=== PATIENT | male | born 1955 | race Caucasian/White ===

== ENCOUNTER 2016-04-24 18:42 | Inpatient (IN) | payer MEDICARE, MEDICAID ==
--- NOTE | 2016-04-24 19:55 | ED Physician Chart ---
Chief Complaint/HPI - Patient Information Date Seen:: 04/24/16 Time Seen:: 19:20 Chief Complaint:: combative History of Present Illness:: THIS IS A 61 YO MALE SENT HERE FOR AN EVALUATION AND TREATMENT FOR A CHRONIC PSYCH CONDITION. HE IS NOT COOPERATIVE AND IS COMBATIVE. Allergies:: Allergies Allergy/AdvReac Type Severity Reaction Status Date / Time Penicillins Allergy Verified 04/24/16 19:02 Vitals:: Vital Signs - 8 hr 04/24/16 19:02 Temp 98.1 F HR 86 RR 21 BP 123/66 O2 Sat % 95 Historian:: EMS, Family Member, Medical Records Review:: Nurse's Note Reviewed, Transfer documents Reviewed Review of Systems - Review of Systems General/Constitutional: Fever (THE PATIENT IS TOO CONFUSE TO GIVE A REVIEW OF SYSTEMS ), No fever, No chills, No weight loss, No weakness, No diaphoresis, No edema, No loss of appetite Skin: Skin lesions (THERE ARE MULTIPLE SKIN LESIONS OVER HIS ENTIRE BODY), No rash, No bruising Head: No headache, No light-headedness Eyes: No loss of vision, No pain, No diplopia ENT: No earache, No nasal drainage, No sore throat, No tinnitus Neck: No neck pain, No swelling, No thyromegaly, No stiffness, No mass noted Cardio Vascular: No chest pain, No palpitations, No PND, No orthopnea, No edema Pulmonary: No SOB, No cough, No sputum, No wheezing GI: No nausea, No vomiting, No diarrhea, No pain, No melena, No hematochezia, No constipation, No hematemesis G/U: No dysuria, No frequency, No hematuria Musculoskeletal: No bone or joint pain, No back pain, No muscle pain Endocrine: No polyuria, No polydipsia Psychiatric: Prior psych history, No depression, No anxiety, No suicidal ideation, Other (COMBATIVE AND LOUD) Hematopoietic: No bruising, No lymphadenopathy Allergic/Immuno: No urticaria, No angioedema Neurological: No syncope, No focal symptoms, No weakness, No paresthesia, No headache, No seizure, No dizziness, No confusion, No vertigo Past Medical History - Past Medical History Obtainable: Yes (FROM RECORDS) Past Medical History: Seizures, Dementia, Other (PSYCHOSIS) Family History: None Social History: Smoker, Alcohol, No Drug Use, Care Facility Surgical History: Hernia Psychiatricy History: Schizophrenia, Bipolar, Dementia Medication: Reviewed Family Medical History - Family Member Mother History Unknown: Yes Physical Exam - Physical Examination General/Constitutional: Awake, Well-developed, well-nourished, Alert, No distress, GCS 15, Non-toxic appearing, Ambulatory Head: Atraumatic Eyes: Lids, conjuctiva normal, PERRL, EOMI Skin: Nl inspection, No rash, No skin lesions, No ecchymosis, Well hydrated, No lymphadenopathy ENMT: External ears, nose nl, Nasal exam nl, Lips, teeth, gums nl Neck: Nontender, Full ROM w/o pain, No JVD, No nuchal rigidity, No bruit, No mass, No stridor Respiratory: Nl effort/Exclusion, Clear to Auscultation, No Wheeze/Rhonchi/Rales Cardio Vascular: RRR, No murmur, gallop, rubs, NL S1 S2 GI: No tenderness/rebounding/guarding, No organomegaly, No hernia, Normal BS's, Nondistended, No mass/bruits, No McBurney tenderness : No CVA tenderness Extremities: No tenderness or effusion, Full ROM, normal strength in all extremities, No edema, Normal digits & nails Neuro/Psych: Alert/oriented, DTR's symmetric, Normal sensory exam, Normal motor strength, Judgement/insight normal (COMBATIVE AND CONFUSED), Mood normal, Normal gait, No focal deficits Misc: normal gait, Normal back, No paraspinal tenderness Labs/Radiology/EKG Results - Lab Results Results: Laboratory Tests 04/24/16 04/24/16 04/24/16 22:05 22:05 22:05 WBC 10.2 RBC 2.89 L Hgb 8.2 L Hct 24.5 L MCV 84.7 MCH 28.3 MCHC Differential 33.4 RDW 16.4 Plt Count 452 H MPV 6.8 Neutrophils % 68.9 Lymphocytes % 23.9 Monocytes % 6.5 Eosinophils % 0.4 Basophils % 0.3 PT 10.6 INR 1.07 PTT (Actin FS) 32.1 Sodium 133 L Potassium 4.2 Chloride 105 Carbon Dioxide 22.0 Anion Gap 10.2 BUN 16 Creatinine 0.6 L Est GFR ( Amer) > 60.0 Est GFR (Non-Af Amer) > 60.0 BUN/Creatinine Ratio 26.7 Glucose 100 Calcium 8.7 Total Bilirubin 0.5 AST 11 L ALT 5 L Alkaline Phosphatase 67 Troponin I Total Protein 6.0 Albumin 2.7 L Globulin 3.3 Albumin/Globulin Ratio 0.8 L Urine Source Urine Color Urine Clarity Urine pH Ur Specific [place] Urine Protein Urine Glucose (UA) Urine Ketones Urine Blood Urine Nitrate Urine Bilirubin Urine Urobilinogen Ur Leukocyte Esterase Urine RBC Urine WBC Ur Epithelial Cells Urine Bacteria 04/24/16 04/24/16 22:05 22:15 WBC RBC Hgb Hct MCV MCH MCHC Differential RDW Plt Count MPV Neutrophils % Lymphocytes % Monocytes % Eosinophils % Basophils % PT INR PTT (Actin FS) Sodium Potassium Chloride Carbon Dioxide Anion Gap BUN Creatinine Est GFR ( Amer) Est GFR (Non-Af Amer) BUN/Creatinine Ratio Glucose Calcium Total Bilirubin AST ALT Alkaline Phosphatase Troponin I 0.01 Total Protein Albumin Globulin Albumin/Globulin Ratio Urine Source CLEAN C Urine Color YELLOW Urine Clarity HAZY Urine pH 7.0 Ur Specific [place] 1.025 Urine Protein NEGATIVE Urine Glucose (UA) NEGATIVE Urine Ketones NEGATIVE Urine Blood NEGATIVE Urine Nitrate POSITIVE H Urine Bilirubin NEGATIVE Urine Urobilinogen >=8.0 H Ur Leukocyte Esterase NEGATIVE Urine RBC 0-2 H Urine WBC 2-5 H Ur Epithelial Cells OCCASIONAL Urine Bacteria MANY ED Septic Shock - . Is Septic Shock (SBP<90, OR Lactate>4 mmol\L) present?: No - <6hrs of presentation: Vital Signs: Vital Signs - 8 hr 04/24/16 19:02 Temp 98.1 F HR 86 RR 21 BP 123/66 O2 Sat % 95 Reassessment (Disposition) - Reassessment Reassessment Condition:: Improved - Patient Disposition Discharge/Transfer:: Acute Care w/in this hosp Admitted to:: Med/Surg Admitting Medical Physician:: Wiley Mai Condition at Disposition:: Improved ED Discharge Plan - Patient Disposition Instructions: Psychosis
[2016-04-24] MEDS ORDERED: Haloperidol Lactate 5 mg/mL 1mL Vial IM STA (19:56)
[2016-04-24] MEDS ORDERED: Haloperidol Lactate 5 mg/mL 1mL Vial ONE (19:57)
[2016-04-24 22:13] LABS: % BASOPHILS 0.3 % (0.0-2.0); % EOSINOPHILS 0.4 % (0.0-5.0); % LYMPHOCYTES 23.9 % (20.0-50.0); % MONOCYTES 6.5 % (2.0-10.0); % NEUTROPHILS 68.9 % (40.0-80.0); HEMATOCRIT 24.5 % (39.0-49.0); HEMOGLOBIN 8.2 gm/dL (13.2-17.3); MEAN CELL VOLUME 84.7 fl (80-99); MEAN CORPUSCULAR HEMOGLOBIN 28.3 pg (26.0-30.0); MEAN CORPUSCULAR HGB CONC 33.4 pg (28.0-36.0); MEAN PLATELET VOLUME 6.8 fl; NEUTROPHILE ABSOLUTE 7.1 Th/cmm (1.8-8.0); PLATELET COUNT 452 Th/cmm (150-400); RED BLOOD COUNT 2.89 Mil/cmm (4.30-5.70); RED CELL DISTRIBUTION WIDTH 16.4 % (11.5-20.0); WHITE BLOOD COUNT 10.2 Th/cmm (4.8-10.8)
[2016-04-24] MEDS ORDERED: Sodium Chloride 0.45% 1,000 ML IV SCH (22:19)
[2016-04-24 22:32] LABS: INR 1.07 (0.5-1.4); PROTHROMBIN TIME (TEST) 10.6 SECONDS (9.5-11.5)
[2016-04-24 22:33] LABS: ALB/GLOB RATIO 0.8 (1.0-1.8); ALKALINE PHOSPHATASE 67 U/L (34-104); ANION GAP 10.2 (7.0-16.0); BILIRUBIN,TOTAL 0.5 mg/dL (0.3-1.0); BUN - UREA NITROGEN 16 mg/dL (7-25); BUN/CREATININE RATIO 26.7; CALCIUM SERUM 8.7 mg/dL (8.6-10.3); CHLORIDE 105 mEq/L (98-107); CREATININE - SERUM 0.6 mg/dL (0.7-1.3); GLUCOSE 100 mg/dL (70-105); POTASSIUM SERUM 4.2 mEq/L (3.5-5.1); SGOT 11 U/L (13-39); SGPT/ALT 5 U/L (7-52); SODIUM SERUM 133 mEq/L (136-145)
[2016-04-24 22:56] LABS: URINE BILIRUBIN NEGATIVE (NEGATIVE); URINE BLOOD NEGATIVE (NEGATIVE); URINE COLOR YELLOW; URINE GLUCOSE (UA) NEGATIVE (NEGATIVE); URINE KETONE NEGATIVE (NEGATIVE); URINE PROTEIN NEGATIVE (NEGATIVE)
[2016-04-24 22:57] LABS: URINE UROBILINOGEN >=8.0 E.U./dL (0.2 - 1.0)
[2016-04-24 22:58] LABS: URINE BACTERIA MANY /hpf (NONE SEEN); URINE EPITHELIAL CELLS OCCASIONAL /lpf (FEW); URINE RBC 0-2 /hpf (0-5)
[2016-04-24] MEDS ORDERED: ACETAMINOPHEN 650 MG PO PRN (23:59)
[2016-04-24] MEDS ORDERED: Maalox 30 mL Cup PO PRN (23:59)
[2016-04-25] MEDS ORDERED: Albuterol Nebulizer 2.5mg/3mL IH PRN (00:04)
[2016-04-25] MEDS ORDERED: guaiFENesin 200 MG/10 ML UDC PO PRN (00:04)
[2016-04-25] MEDS ORDERED: Ipratropium Neb 0.5 mg/2.5 mL UD IH PRN (00:04)
[2016-04-25] MEDS ORDERED: Maalox 30 mL Cup PO PRN (00:04)
[2016-04-25] MEDS ORDERED: Levofloxacin 500mg/100mL 500 MG/100 ML BAG IV ONE ×2 (00:15→01:49)
[2016-04-25] MEDS: D5-0.45NS 1,000 ML IV SCH ×2 (06:50→23:37)
[2016-04-25] MEDS ORDERED: [UNRECOGNIZED DRUG - OTHER] PO SCH (09:00)
[2016-04-25] MEDS ORDERED: LACTOBACILLUS ACIDOPHILUS PO SCH (09:00)
[2016-04-25] MEDS: Lactobacillus Rhamnosus 10 Billion CFU Capsule PO SCH (09:42)
[2016-04-25] MEDS: Benztropine 1 MG TAB PO SCH ×2 (09:42→18:15)
[2016-04-25] MEDS: Lactulose 10 Gm/15 mL 30mL UDC PO SCH ×3 (09:42→21:47)
[2016-04-25] MEDS: Pantoprazole 40 mg EC Tab PO SCH ×2 (09:42→18:15)
[2016-04-25] MEDS ORDERED: Diatrizoate Meglumine/Diatri 30 mL Sol PO ONE (12:43)
--- NOTE | 2016-04-25 13:01 | Internal Medicine Prog Note ---
Internal Medicine Subjective - Subjective Service Date: 04/25/16 ([facility] [id number] [facility]) Internal Medicine Objective - Results Result Diagrams: 04/24/16 22:05 04/24/16 22:05 Recent Labs: Laboratory Last Values WBC 10.2 Th/cmm (4.8-10.8) 04/24/16 22:05 RBC 2.89 Mil/cmm (4.30-5.70) L 04/24/16 22:05 Hgb 8.2 gm/dL (13.2-17.3) L 04/24/16 22:05 Hct 24.5 % (39.0-49.0) L 04/24/16 22:05 MCV 84.7 fl (80-99) 04/24/16 22:05 MCH 28.3 pg (26.0-30.0) 04/24/16 22:05 MCHC Differential 33.4 pg (28.0-36.0) 04/24/16 22:05 RDW 16.4 % (11.5-20.0) 04/24/16 22:05 Plt Count 452 Th/cmm (150-400) H 04/24/16 22:05 MPV 6.8 fl 04/24/16 22:05 Neutrophils % 68.9 % (40.0-80.0) 04/24/16 22:05 Lymphocytes % 23.9 % (20.0-50.0) 04/24/16 22:05 Monocytes % 6.5 % (2.0-10.0) 04/24/16 22:05 Eosinophils % 0.4 % (0.0-5.0) 04/24/16 22:05 Basophils % 0.3 % (0.0-2.0) 04/24/16 22:05 PT 10.6 SECONDS (9.5-11.5) 04/24/16 22:05 INR 1.07 (0.5-1.4) 04/24/16 22:05 PTT (Actin FS) 32.1 SECONDS (26.0-38.0) 04/24/16 22:05 Sodium 133 mEq/L (136-145) L 04/24/16 22:05 Potassium 4.2 mEq/L (3.5-5.1) 04/24/16 22:05 Chloride 105 mEq/L (98-107) 04/24/16 22:05 Carbon Dioxide 22.0 mEq/L (21.0-31.0) 04/24/16 22:05 Anion Gap 10.2 (7.0-16.0) 04/24/16 22:05 BUN 16 mg/dL (7-25) 04/24/16 22:05 Creatinine 0.6 mg/dL (0.7-1.3) L 04/24/16 22:05 Est GFR ( Amer) > 60.0 ml/min 04/24/16 22:05 Est GFR (Non-Af Amer) > 60.0 ml/min 04/24/16 22:05 BUN/Creatinine Ratio 26.7 04/24/16 22:05 Glucose 100 mg/dL (70-105) 04/24/16 22:05 Calcium 8.7 mg/dL (8.6-10.3) 04/24/16 22:05 Total Bilirubin 0.5 mg/dL (0.3-1.0) 04/24/16 22:05 AST 11 U/L (13-39) L 04/24/16 22:05 ALT 5 U/L (7-52) L 04/24/16 22:05 Alkaline Phosphatase 67 U/L (34-104) 04/24/16 22:05 Troponin I 0.01 ng/mL (0.01-0.05) 04/24/16 22:05 Total Protein 6.0 gm/dL (6.0-8.3) 04/24/16 22:05 Albumin 2.7 gm/dL (4.2-5.5) L 04/24/16 22:05 Globulin 3.3 gm/dL 04/24/16 22:05 Albumin/Globulin Ratio 0.8 (1.0-1.8) L 04/24/16 22:05 TSH 2.69 uIU/ml (0.34-5.60) 04/24/16 22:05 Urine Source CLEAN C 04/24/16 22:15 Urine Color YELLOW 04/24/16 22:15 Urine Clarity HAZY (CLEAR) 04/24/16 22:15 Urine pH 7.0 04/24/16 22:15 Ur Specific [place] 1.025 (1.005-1.030) 04/24/16 22:15 Urine Protein NEGATIVE mg/dL (NEGATIVE) 04/24/16 22:15 Urine Glucose (UA) NEGATIVE mg/dL (NEGATIVE) 04/24/16 22:15 Urine Ketones NEGATIVE mg/dL (NEGATIVE) 04/24/16 22:15 Urine Blood NEGATIVE (NEGATIVE) 04/24/16 22:15 Urine Nitrate POSITIVE (NEGATIVE) H 04/24/16 22:15 Urine Bilirubin NEGATIVE (NEGATIVE) 04/24/16 22:15 Urine Urobilinogen >=8.0 E.U./dL (0.2 - 1.0) H 04/24/16 22:15 Ur Leukocyte Esterase NEGATIVE (NEGATIVE) 04/24/16 22:15 Urine RBC 0-2 /hpf (0-5) H 04/24/16 22:15 Urine WBC 2-5 /hpf (0-5) H 04/24/16 22:15 Ur Epithelial Cells OCCASIONAL /lpf (FEW) 04/24/16 22:15 Urine Bacteria MANY /hpf (NONE SEEN) 04/24/16 22:15 Blood Type O POSITIVE 04/24/16 22:05 Antibody Screen NEGATIVE 04/24/16 22:05 Crossmatch See Detail 04/24/16 22:05 - Physical Exam Vitals and I&O: Vital Signs Temp 98.6 F 04/25/16 12:00 Pulse 85 04/25/16 12:00 Resp 18 04/25/16 12:00 BP 119/67 04/25/16 12:00 Pulse Ox 97 04/25/16 12:00 Intake & Output 04/24/16 04/25/16 04/25/16 18:59 06:59 18:59 Intake Total 850 Balance 850 Intake: Intake, IV Amount 850 Active Medications: Current Medications Acetaminophen (Tylenol) 650 mg PO Q4HR PRN PRN Reason: Pain or Fever >101 Stop: 06/24/16 00:03 Al Hydrox/Mg Hydrox/Simethicone (Maalox) 30 ml PO DAILY PRN PRN Reason: GI UPSET Stop: 06/23/16 23:58 Al Hydrox/Mg Hydrox/Simethicone (Maalox) 30 ml PO Q6HR PRN PRN Reason: Constipation Stop: 06/24/16 00:03 Albuterol Sulfate (Albuterol 2.5mg/3ml Neb Ud) 2.5 mg IH Q2HR PRN PRN Reason: Shortness of Breath or Wheeze Stop: 06/24/16 00:03 Ascorbic Acid (Vitamin C) 500 mg PO DAILY OLY Stop: 06/24/16 08:59 Benztropine Mesylate (Cogentin) 1 mg PO BID OLY Stop: 06/24/16 08:59 Clonazepam (Klonopin) 0.5 mg PO DAILY OLY PRN Reason: Protocol Stop: 06/24/16 08:59 Guaifenesin (Robitussin) 200 mg PO Q4HR PRN PRN Reason: Cough or Congestion Stop: 06/24/16 00:03 Haloperidol Decanoate (Haldol Dec) 50 mg IM [id number] OLY PRN Reason: Protocol Stop: 06/23/16 23:44 Dextrose/Sodium Chloride (D5-0.45ns) 1,000 mls @ 100 mls/hr IV .Q10H [facility] Stop: 06/24/16 00:14 Last Admin: 04/25/16 06:50 Dose: 100 mls/hr Levofloxacin (Levaquin Pb) 500 mg in 100 mls @ 100 mls/hr IV Q24HR [facility] Stop: 06/24/16 20:59 Ipratropium Pablo (Atrovent Neb 0.5mg/2.5ml) 0.5 mg IH Q2HR PRN PRN Reason: Shortness of Breath or Wheeze Stop: 06/24/16 00:03 Lactobacillus Rhamnosus (Culturelle) 1 each PO DAILY [facility] Stop: 06/24/16 08:59 Lactulose (Cephulac) 20 gm PO TID [facility] Stop: 06/24/16 08:59 Lorazepam (Ativan) 1 mg PO Q4H PRN; Protocol PRN Reason: Anxiety Stop: 06/23/16 23:58 Meclizine HCl (Antivert) 25 mg PO DAILY PRN PRN Reason: Nausea / Vomiting Stop: 06/24/16 00:03 Ondansetron HCl (Zofran) 4 mg IV Q8H PRN PRN Reason: Nausea / Vomiting Stop: 06/24/16 00:03 Pantoprazole Sodium (Protonix) 40 mg PO BID [facility] Stop: 06/24/16 08:59 Zolpidem Tartrate (Ambien) 10 mg PO HS PRN PRN Reason: Insomnia Stop: 06/24/16 00:03 - Procedures Procedures: Procedures Procedure Code Date BLOOD TRANSFUSION SERVICE 28912 09/07/06 INJECT/INFUSE NEC 99.29 07/23/09 NON-INVASIVE MECHANICAL VENTILATION 93.90 12/07/04 OTHER PYLOROPLASTY 44.29 12/07/04 PACKED CELL TRANSFUSION 99.04 07/06/06 PART GASTREC W JEJ ANAST 43.7 05/23/05 POS AIRWAY PRESSURE CPAP 36443 12/07/04 REMOVAL OF STOMACH PARTIAL 28012 05/23/05 TRANSFUSION NEC 99.09 09/07/06 TRUNCAL VAGOTOMY 44.01 12/07/04 VAGOTOMY & PYLORUS REPAIR 03330 12/07/04 Internal Medicine Assmt/Plan - Assessment Assessment: ACUTE UTI SEVERE ANEMIA GERD
--- NOTE | 2016-04-25 15:27 | History & Physical ---
CHIEF COMPLAINT: ALOC. HISTORY OF PRESENT ILLNESS: This is a 61-year-old male who is a resident of [facility] who is sent here to [facility] for UTI and agitation. For this reason, the patient was admitted to the telemetry unit. PAST MEDICAL HISTORY: GERD, seizures, dementia. FAMILY HISTORY: Noncontributory. SOCIAL HISTORY: The patient is a smoker, denies any illicit drug usage. The patient resides at a board and [facility]. SURGICAL HISTORY: Hernia repair. PSYCHIATRIC HISTORY: Schizophrenia, bipolar. MEDICATIONS: Please see medication reconciliation sheet. REVIEW OF SYSTEMS: Unable to obtain, patient is confused. PHYSICAL EXAMINATION: GENERAL: The patient is well developed, well nourished, no acute distress. VITAL SIGNS: Temperature 98.6, heart rate 85, blood pressure 119/67, respirations 18, O2 97%. HEENT: Head; normocephalic, atraumatic. NECK: Supple. No mass. LUNGS: Clear bilaterally upon auscultation. CARDIOVASCULAR: Regular rate and rhythm. No murmurs, no gallops. SKIN: Intact, warm and dry to touch. ABDOMEN: Soft, nontender, nondistended. Positive bowel sounds in all 4 quadrants. LABORATORY DATA: WBC 10.2, H and H 8.2 and 24.5. Sodium 133, potassium 4.2, chloride 105, carbon dioxide 22.0, BUN 0.6, calcium 8.7. The patient had a urinalysis done and showed acute UTI. ASSESSMENT: Severe anemia, agitation and urinary tract infection. PLAN: The patient will be admitted to the med/surg unit. The patient to have a 1:1 sitter for safety. The patient to have a consultation with Dr. Harrington and Dr. Hernandez. The patient to have a CT of abdomen and pelvis. CBC and BMP will be monitored. The patient will be kept on IV fluids for hydration. We will continue to monitor the patient. JOB# [id number]
[2016-04-25] MEDS ORDERED: VTE Chemical Prophylaxis Screen/Admission MC PRN (17:24)
[2016-04-25] MEDS ORDERED: Levofloxacin 500mg/100mL Premix Bag IV SCH (21:00)
--- NOTE | 2016-04-26 02:30 | Consultation ---
INPATIENT GI CONSULT REFERRING PHYSICIAN: Dr. Mai. REASON FOR CONSULTATION: Anemia. HISTORY OF PRESENT ILLNESS: This is a 61-year-old male who was brought in for chronic psychiatric condition. The patient is uncooperative. The patient apparently was noted to be anemic. Discussing this matter with the patient, he denies having any GI bleeding. Denies abdominal pain. Denies nausea or vomiting. PAST MEDICAL HISTORY: Seizure, dementia, and psychosis. PAST SURGICAL HISTORY: Hernia repair. FAMILY HISTORY: Noncontributory. SOCIAL HISTORY: He smokes tobacco. Drinks alcohol. No IV drug usage. Resident of [facility]. ALLERGIES: PENICILLIN. CURRENT MEDICATIONS: Tylenol, Maalox, vitamin C, Cogentin, Klonopin, Robitussin, Haldol, Ativan, lactulose, Levaquin, Antivert, Zofran, Protonix, and Ambien. REVIEW OF SYSTEMS: Has underlying psychosis, otherwise denies GI bleeding. All other systems are otherwise negative. PHYSICAL EXAMINATION: VITAL SIGNS: Temperature is 98.6, breathing 18, pulse 85, blood pressure is 119/67, and satting 97%. GENERAL: In no apparent distress. EYES: Anicteric, normal conjunctivae. HEENT: Normocephalic and atraumatic. Moist mucous membranes. NECK: Soft, supple. CHEST: Clear, normal effort. CARDIOVASCULAR: Regular rate and rhythm. ABDOMEN: Soft, nontender, and nondistended. SKIN: Warm and dry. EXTREMITIES: Reveal no cyanosis. PSYCHOLOGIC: Alert. LABORATORY DATA: Show white count , hemoglobin 8.2, MCV of 84, platelets of 452,000. INR 1.07, BUN 16, and creatinine 0.6. LFTs within normal limits. IMPRESSION: This is a 61-year-old male with a normocytic anemia, cause could be from chronic disease versus gastrointestinal blood loss. The patient was offered endoscopy and colonoscopy to rule out gastrointestinal bleed. He refused to have this done. He is made aware that the failure to have proper workup could result in a missed diagnosis, missed care and treatment options resulting in cancer, resulting in early or unforeseeable disability. He understands and declined. Alternatively, we could do a CT scan to see if anything comes up and hemoglobin could be followed meantime. PLAN: 1. CT abdomen and pelvis. 2. Follow H and H and transfuse as needed. 3. The patient refused EGD and colonoscopy. Thank you for allowing me to participate. Please call me if you have any questions. JOB# [id number]
--- NOTE | 2016-04-26 03:45 | Consultation ---
IDENTIFYING INFORMATION: The patient is a 61-year-old male. REASON FOR CONSULTATION: This patient has been very agitated. The patient himself was admitted because of anemia, agitation, while he is on Haldol 50 mg decanoate every month. When I tried to talk to the patient, he looked sedated; however, when I approached him through this myself, he started yelling and screaming, telling me, "I don't care who the hell you are," and started becoming extremely agitated, uncooperative with a formal mental status exam. PAST PSYCHIATRIC HISTORY: Obviously, the patient has a history of some psychiatric condition, which I cannot really determine since he was uncooperative when I talked to him as he is on Haldol Decanoate. I was unable to get any information regarding substance abuse. MEDICAL HISTORY: The patient has severe anemia and Gastroenterology has been consulted. FAMILY AND SOCIAL HISTORY: Unable to get any information from the patient. MENTAL STATUS EXAMINATION: The patient was extremely agitated and irritable. He was unable to participate in meaningful conversation, unable to do a formal mental status exam, asked him questions over hallucination, suicidal ideation, homicidal ideation, and memory. Insight and judgment impaired. IMPRESSION: AXIS I: Psychosis, not otherwise specified. MEDICAL DIAGNOSES: Deferred to . Transfer the patient to [facility]. I will initiate Haldol 2 mg twice a day. Thank you very much for allowing me to participate in the care of this most interesting gentleman. JOB# [id number]
[2016-04-26 07:26] LABS: % BASOPHILS 0.3 % (0.0-2.0); % EOSINOPHILS 0.8 % (0.0-5.0); % LYMPHOCYTES 36.4 % (20.0-50.0); % MONOCYTES 6.7 % (2.0-10.0); % NEUTROPHILS 55.8 % (40.0-80.0); HEMOGLOBIN 9.4 gm/dL (13.2-17.3); MEAN CELL VOLUME 86.1 fl (80-99); MEAN CORPUSCULAR HEMOGLOBIN 28.8 pg (26.0-30.0); MEAN CORPUSCULAR HGB CONC 33.4 pg (28.0-36.0); MEAN PLATELET VOLUME 6.8 fl; NEUTROPHILE ABSOLUTE 4.6 Th/cmm (1.8-8.0); PLATELET COUNT 460 Th/cmm (150-400); RED BLOOD COUNT 3.27 Mil/cmm (4.30-5.70); RED CELL DISTRIBUTION WIDTH 16.4 % (11.5-20.0); WHITE BLOOD COUNT 8.4 Th/cmm (4.8-10.8)
[2016-04-26 07:46] LABS: HEMATOCRIT 28.1 % (39.0-49.0)
[2016-04-26 07:48] LABS: ANION GAP 10.5 (7.0-16.0); BUN - UREA NITROGEN 8 mg/dL (7-25); BUN/CREATININE RATIO 13.3; CALCIUM SERUM 9.9 mg/dL (8.6-10.3); CARBON DIOXIDE 26.3 mEq/L (21.0-31.0); CHLORIDE 109 mEq/L (98-107); CREATININE - SERUM 0.6 mg/dL (0.7-1.3); GLUCOSE 110 mg/dL (70-105); MAGNESIUM 2.2 mg/dL (1.9-2.7); POTASSIUM SERUM 5.8 mEq/L (3.5-5.1); SODIUM SERUM 140 mEq/L (136-145)
[2016-04-26] MEDS: Lactulose 10 Gm/15 mL 30mL UDC PO SCH ×2 (09:11→14:34)
[2016-04-26] MEDS: Pantoprazole 40 mg EC Tab PO SCH ×2 (09:12→17:06)
[2016-04-26] MEDS: Benztropine 1 MG TAB PO SCH ×2 (09:12→17:07)
[2016-04-26] MEDS: Lactobacillus Rhamnosus 10 Billion CFU Capsule PO SCH (09:12)
[2016-04-26 09:24] LABS: IRON SATURATION 38 % (15-55); TIBC (LCI) 177 ug/dL (250-450); UIBC 110 ug/dL (111-343)
--- NOTE | 2016-04-26 12:42 | Internal Medicine Prog Note ---
Internal Medicine Subjective - Subjective Service Date: 04/26/16 Patient seen and examined:: with staff Patient is:: awake Per staff patient is:: no adverse event Internal Medicine Objective - Results Result Diagrams: 04/26/16 06:30 04/26/16 06:30 Recent Labs: Laboratory Last Values WBC 8.4 Th/cmm (4.8-10.8) 04/26/16 06:30 RBC 3.27 Mil/cmm (4.30-5.70) L 04/26/16 06:30 Hgb 9.4 gm/dL (13.2-17.3) L 04/26/16 06:30 Hct 28.1 % (39.0-49.0) L D 04/26/16 06:30 MCV 86.1 fl (80-99) 04/26/16 06:30 MCH 28.8 pg (26.0-30.0) 04/26/16 06:30 MCHC Differential 33.4 pg (28.0-36.0) 04/26/16 06:30 RDW 16.4 % (11.5-20.0) 04/26/16 06:30 Plt Count 460 Th/cmm (150-400) H 04/26/16 06:30 MPV 6.8 fl 04/26/16 06:30 Neutrophils % 55.8 % (40.0-80.0) 04/26/16 06:30 Lymphocytes % 36.4 % (20.0-50.0) 04/26/16 06:30 Monocytes % 6.7 % (2.0-10.0) 04/26/16 06:30 Eosinophils % 0.8 % (0.0-5.0) 04/26/16 06:30 Basophils % 0.3 % (0.0-2.0) 04/26/16 06:30 PT 10.6 SECONDS (9.5-11.5) 04/24/16 22:05 INR 1.07 (0.5-1.4) 04/24/16 22:05 PTT (Actin FS) 32.1 SECONDS (26.0-38.0) 04/24/16 22:05 Sodium 140 mEq/L (136-145) 04/26/16 06:30 Potassium 5.8 mEq/L (3.5-5.1) H 04/26/16 06:30 Chloride 109 mEq/L (98-107) H 04/26/16 06:30 Carbon Dioxide 26.3 mEq/L (21.0-31.0) 04/26/16 06:30 Anion Gap 10.5 (7.0-16.0) 04/26/16 06:30 BUN 8 mg/dL (7-25) 04/26/16 06:30 Creatinine 0.6 mg/dL (0.7-1.3) L 04/26/16 06:30 Est GFR ( Amer) > 60.0 ml/min 04/26/16 06:30 Est GFR (Non-Af Amer) > 60.0 ml/min 04/26/16 06:30 BUN/Creatinine Ratio 13.3 04/26/16 06:30 Glucose 110 mg/dL (70-105) H 04/26/16 06:30 Calcium 9.9 mg/dL (8.6-10.3) 04/26/16 06:30 Magnesium 2.2 mg/dL (1.9-2.7) 04/26/16 06:30 Iron 67 ug/dL (38-169) 04/25/16 08:10 TIBC 177 ug/dL (250-450) L 04/25/16 08:10 Iron Saturation 38 % (15-55) 04/25/16 08:10 Unsaturated IBC 110 ug/dL (111-343) L 04/25/16 08:10 Total Bilirubin 0.5 mg/dL (0.3-1.0) 04/24/16 22:05 AST 11 U/L (13-39) L 04/24/16 22:05 ALT 5 U/L (7-52) L 04/24/16 22:05 Alkaline Phosphatase 67 U/L (34-104) 04/24/16 22:05 Ammonia 77 umol/L (16-53) H 04/26/16 06:30 Troponin I 0.01 ng/mL (0.01-0.05) 04/24/16 22:05 B-Natriuretic Peptide 191.0 pg/mL (5.0-100.0) H 04/26/16 06:30 Total Protein 6.0 gm/dL (6.0-8.3) 04/24/16 22:05 Albumin 2.7 gm/dL (4.2-5.5) L 04/24/16 22:05 Globulin 3.3 gm/dL 04/24/16 22:05 Albumin/Globulin Ratio 0.8 (1.0-1.8) L 04/24/16 22:05 TSH 2.69 uIU/ml (0.34-5.60) 04/24/16 22:05 Urine Source CLEAN C 04/24/16 22:15 Urine Color YELLOW 04/24/16 22:15 Urine Clarity HAZY (CLEAR) 04/24/16 22:15 Urine pH 7.0 04/24/16 22:15 Ur Specific [place] 1.025 (1.005-1.030) 04/24/16 22:15 Urine Protein NEGATIVE mg/dL (NEGATIVE) 04/24/16 22:15 Urine Glucose (UA) NEGATIVE mg/dL (NEGATIVE) 04/24/16 22:15 Urine Ketones NEGATIVE mg/dL (NEGATIVE) 04/24/16 22:15 Urine Blood NEGATIVE (NEGATIVE) 04/24/16 22:15 Urine Nitrate POSITIVE (NEGATIVE) H 04/24/16 22:15 Urine Bilirubin NEGATIVE (NEGATIVE) 04/24/16 22:15 Urine Urobilinogen >=8.0 E.U./dL (0.2 - 1.0) H 04/24/16 22:15 Ur Leukocyte Esterase NEGATIVE (NEGATIVE) 04/24/16 22:15 Urine RBC 0-2 /hpf (0-5) H 04/24/16 22:15 Urine WBC 2-5 /hpf (0-5) H 04/24/16 22:15 Ur Epithelial Cells OCCASIONAL /lpf (FEW) 04/24/16 22:15 Urine Bacteria MANY /hpf (NONE SEEN) 04/24/16 22:15 RPR NONREACTIVE (NONREACTIVE) 04/24/16 22:05 Blood Type O POSITIVE 04/24/16 22:05 Antibody Screen NEGATIVE 04/24/16 22:05 Crossmatch See Detail 04/24/16 22:05 - Physical Exam Vitals and I&O: Vital Signs Temp 98.6 F 04/26/16 00:00 Pulse 84 04/26/16 00:00 Resp 18 04/26/16 04:00 BP 112/69 04/26/16 00:00 Pulse Ox 96 01/10/17 00:00 Intake & Output 04/25/16 04/26/16 04/26/16 18:59 06:59 18:59 Intake Total 3100 400 Balance 3100 400 Intake: Intake, IV Amount 1000 D5-0.45NS 1,000 ml @ 100 1000 mls/hr IV .Q10H [facility] Rx#: [id number] Oral 2100 400 Other: # Voids 10 5 # Bowel Movements 0 Active Medications: Current Medications Acetaminophen (Tylenol) 650 mg PO Q4HR PRN PRN Reason: Pain or Fever >101 Stop: 06/24/16 00:03 Al Hydrox/Mg Hydrox/Simethicone (Maalox) 30 ml PO Q6HR PRN PRN Reason: Constipation Stop: 06/24/16 00:03 Albuterol Sulfate (Albuterol 2.5mg/3ml Neb Ud) 2.5 mg IH Q2HR PRN PRN Reason: Shortness of Breath or Wheeze Stop: 06/24/16 00:03 Ascorbic Acid (Vitamin C) 500 mg PO DAILY [facility] Stop: 06/24/16 08:59 Last Admin: 04/26/16 09:12 Dose: 500 mg Benztropine Mesylate (Cogentin) 1 mg PO BID OLY Stop: 06/24/16 08:59 Last Admin: 04/26/16 09:12 Dose: 1 mg Clonazepam (Klonopin) 0.5 mg PO DAILY OLY PRN Reason: Protocol Stop: 06/24/16 08:59 Last Admin: 04/26/16 09:11 Dose: 0.5 mg Guaifenesin (Robitussin) 200 mg PO Q4HR PRN PRN Reason: Cough or Congestion Stop: 06/24/16 00:03 Haloperidol (Haldol) 2 mg PO BID OLY PRN Reason: Protocol Stop: 06/25/16 08:59 Last Admin: 04/26/16 09:11 Dose: 2 mg Haloperidol Decanoate (Haldol Dec) 50 mg IM [id number] OLY PRN Reason: Protocol Stop: 06/25/16 09:59 Last Admin: 04/26/16 09:14 Dose: 50 mg Dextrose/Sodium Chloride (D5-0.45ns) 1,000 mls @ 100 mls/hr IV .Q10H O[facility] Stop: 06/24/16 00:14 Last Admin: 04/25/16 23:37 Dose: 100 mls/hr Levofloxacin (Levaquin Pb) 500 mg in 100 mls @ 100 mls/hr IV Q24HR O[facility] Stop: 06/24/16 20:59 Last Admin: 04/25/16 21:34 Dose: 100 mls/hr Ipratropium [place] (Atrovent Neb 0.5mg/2.5ml) 0.5 mg IH Q2HR PRN PRN Reason: Shortness of Breath or Wheeze Stop: 06/24/16 00:03 Lactobacillus Rhamnosus (Culturelle) 1 each PO DAILY OLY Stop: 06/24/16 08:59 Last Admin: 04/26/16 09:12 Dose: 1 each Lactulose (Cephulac) 20 gm PO TID OLY Stop: 06/24/16 08:59 Last Admin: 04/26/16 09:11 Dose: 20 gm Lorazepam (Ativan) 1 mg PO Q4H PRN; Protocol PRN Reason: Anxiety Stop: 06/23/16 23:58 Meclizine HCl (Antivert) 25 mg PO DAILY PRN PRN Reason: Nausea / Vomiting Stop: 06/24/16 00:03 Miscellaneous (Vte Chemical Prophylaxis Screen/ Admission) 1 ea [facility] PRN PRN PRN Reason: PROTOCOL Stop: 06/24/16 17:23 Ondansetron HCl (Zofran) 4 mg IV Q8H PRN PRN Reason: Nausea / Vomiting Stop: 06/24/16 00:03 Pantoprazole Sodium (Protonix) 40 mg PO BID [facility] Stop: 06/24/16 08:59 Last Admin: 04/26/16 09:12 Dose: 40 mg Zolpidem Tartrate (Ambien) 10 mg PO HS PRN PRN Reason: Insomnia Stop: 06/24/16 00:03 General: alert HEENT: NC/AT, PERRLA Neck: Supple Lungs: CTAB Cardiovascular: RRR, Normal S1, Normal S2, without murmur Abdomen: soft non-tender Neurological: no change - Procedures Procedures: Procedures Procedure Code Date BLOOD TRANSFUSION SERVICE 63537 09/07/06 INJECT/INFUSE NEC 99.29 07/23/09 NON-INVASIVE MECHANICAL VENTILATION 93.90 12/07/04 OTHER PYLOROPLASTY 44.29 12/07/04 PACKED CELL TRANSFUSION 99.04 07/06/06 PART GASTREC W JEJ ANAST 43.7 05/23/05 POS AIRWAY PRESSURE CPAP 69229 12/07/04 REMOVAL OF STOMACH PARTIAL 37410 05/23/05 TRANSFUSION NEC 99.09 09/07/06 TRUNCAL VAGOTOMY 44.01 12/07/04 VAGOTOMY & PYLORUS REPAIR 53034 12/07/04 Internal Medicine Assmt/Plan - Assessment Assessment: ACUTE UTI SEVERE ANEMIA GERD - Plan Plan: continue ivabx ivf for hydration dc planning
[2016-04-26] MEDS: D5-0.45NS 1,000 ML IV SCH ×3 (14:37→18:13)
--- NOTE | 2016-04-26 15:11 | Diagnostic Imaging Report ---
CT scan abdomen and pelvis without intravenous contrast HISTORY: Anemia Total DLP equals 412 CTDI equals 8.2 Axial sections were obtained from the xiphoid process down to the pubic symphysis. Limited sections of the lower chest demonstrate abnormal density within the left lower hemithorax. This may be associated with the pleura. Small air collections noted. Cavitation cannot be excluded. The appearance suggests an inflammatory etiology. Clinical correlation and follow-up is needed. Evidence for small right pleural effusion noted. There is evidence for small hiatal hernia. Radiodensities noted near the GE junction suggesting surgical changes. The liver exhibits a homogeneous parenchyma. No focal lesions. The spleen appears normal. No focal abnormality seen in the region of the pancreas. There is an approximate 3.3 cm round intraluminal balloon like density within the stomach. The findings should be correlated clinically and with the patient's surgical history. No focal renal lesions are seen. No hydronephrosis. Atherosclerotic calcination seen in the aorta. Assess chronic vascular calcification is noted. The exam of the pelvis demonstrates preservation of normal fat planes. No abnormal soft tissue masses or abnormal fluid collections. Mild prostatic enlargement is seen. IMPRESSION: 1. Approximately 3.3 cm round intraluminal balloon-like density within the stomach. The finding should be correlated clinically and with the patient's surgical history. 2. Extensive abnormal density within the left lower hemithorax. This may be associated with the pleura. Small air collections are seen. Findings may be associated with cavitation and an inflammatory etiology. Clinical correlation and follow-up is needed 3. Suggestion of a hiatal hernia. Area densities noted near the GE junction may be related to prior surgery. Again, correlation with surgical history is needed. 4. Findings consistent with prior cholecystectomy 5. Atherosclerotic vascular changes
[2016-04-26 15:13] LABS: AFP TUMOR MARKER 1.2 ng/mL (0.0-8.3); CARCINOEMBRYONIC ANTIGEN 1.9 ng/mL (0.0-4.7)
--- NOTE | 2016-04-26 21:34 | Admit Criteria Form ---
Admit Criteria Forms - Admit Criteria Diagnosis: URINARY COMPLICATIONS Clinical Indications for Inpatient Care (Place 'X' for any and all applicable criteria): Ongoing inpatient care may be indicated for urinary complications with ANY ONE of the following: [X ]I. Urinary tract infection requiring inpatient care as indicated by ANY ONE of the following(8)(19)(20): [ ]a) Severe symptoms (eg, high fever, severe pain) [ ]b) Vomiting or dehydration requiring ongoing inpatient care [ X]c) IV antibiotic needs that cannot be managed at lower level of care [ ]d) Hemodynamic instability [ ]e) Obstruction of collecting system by stone or tumor [ ]II. Urinary retention requiring drainage or surgery (3)(4)(5)(17)(18) [ ]III. Renal failure (Use Renal Failure Criteria for further information.) [ ]IV. Oliguria(30) [ ]V. Post obstructive diuresis requiring close monitoring of urine output and intravenous compensation for excessive fluid losses(33) Extended stay beyond goal length of stay for primary condition may be needed until ALL of the following are present(3)(4)(5)(8): [ ]a) Renal function (creatinine) at baseline, or daily decreases in creatinine consistent with renal function return [ ]b) Voiding adequately or with urinary catheter or percutaneous suprapubic tube and management regimen in place that is performable at lower level of care. [ ]c) Urine output adequate [ ]d) Fever absent or resolving [ ]e) Infection absent or treatable at next level of care The original [employer] content created by [employer] has been revised. The portions of the content which have been revised are identified through the use of italic text or in bold, and [facility] has neither reviewed nor approved the modified material. All other unmodified content is copyright [facility] Please see references footnoted in the original [facility] edition 2016
--- NOTE | 2016-04-27 02:26 | Progress Notes ---
Case was discussed with staff of the patient. The patient reported yesterday he was calmer. He took his medication. He was easier to redirect, but he got Ativan today. He is a little bit ____ Haldol Decanoate. He is sleeping better. He is, however, somewhat resistant with the staff, refusing care, but in general, he is not acting anyway dangerous, working on placement. No side effects with the medication, no sedation, no nausea, and no extrapyramidal symptoms. We will continue to work with the patient in group therapy, milieu therapy, and adjust medication. Thank you very much for allowing me to participate in the care of this most interesting gentleman. JOB# [id number]
[2016-04-27] MEDS: Pantoprazole 40 mg EC Tab PO SCH ×2 (09:35→17:39)
[2016-04-27] MEDS: Lactobacillus Rhamnosus 10 Billion CFU Capsule PO SCH (09:35)
[2016-04-27] MEDS: Lactulose 10 Gm/15 mL 30mL UDC PO SCH ×3 (09:36→20:51)
[2016-04-27] MEDS: Benztropine 1 MG TAB PO SCH ×2 (09:36→17:39)
--- NOTE | 2016-04-27 12:22 | Internal Medicine Prog Note ---
Internal Medicine Subjective - Subjective Service Date: 04/27/16 (patient was seen by gi and refused to be examined) Patient seen and examined:: with staff Patient is:: awake Per staff patient is:: no adverse event Internal Medicine Objective - Results Result Diagrams: 04/26/16 06:30 04/26/16 06:30 Recent Labs: Laboratory Last Values WBC 8.4 Th/cmm (4.8-10.8) 04/26/16 06:30 RBC 3.27 Mil/cmm (4.30-5.70) L 04/26/16 06:30 Hgb 9.4 gm/dL (13.2-17.3) L 04/26/16 06:30 Hct 28.1 % (39.0-49.0) L D 04/26/16 06:30 MCV 86.1 fl (80-99) 04/26/16 06:30 MCH 28.8 pg (26.0-30.0) 04/26/16 06:30 MCHC Differential 33.4 pg (28.0-36.0) 04/26/16 06:30 RDW 16.4 % (11.5-20.0) 04/26/16 06:30 Plt Count 460 Th/cmm (150-400) H 04/26/16 06:30 MPV 6.8 fl 04/26/16 06:30 Neutrophils % 55.8 % (40.0-80.0) 04/26/16 06:30 Lymphocytes % 36.4 % (20.0-50.0) 04/26/16 06:30 Monocytes % 6.7 % (2.0-10.0) 04/26/16 06:30 Eosinophils % 0.8 % (0.0-5.0) 04/26/16 06:30 Basophils % 0.3 % (0.0-2.0) 04/26/16 06:30 PT 10.6 SECONDS (9.5-11.5) 04/24/16 22:05 INR 1.07 (0.5-1.4) 04/24/16 22:05 PTT (Actin FS) 32.1 SECONDS (26.0-38.0) 04/24/16 22:05 Sodium 140 mEq/L (136-145) 04/26/16 06:30 Potassium 5.8 mEq/L (3.5-5.1) H 04/26/16 06:30 Chloride 109 mEq/L (98-107) H 04/26/16 06:30 Carbon Dioxide 26.3 mEq/L (21.0-31.0) 04/26/16 06:30 Anion Gap 10.5 (7.0-16.0) 04/26/16 06:30 BUN 8 mg/dL (7-25) 04/26/16 06:30 Creatinine 0.6 mg/dL (0.7-1.3) L 04/26/16 06:30 Est GFR ( Amer) > 60.0 ml/min 04/26/16 06:30 Est GFR (Non-Af Amer) > 60.0 ml/min 04/26/16 06:30 BUN/Creatinine Ratio 13.3 04/26/16 06:30 Glucose 110 mg/dL (70-105) H 04/26/16 06:30 Calcium 9.9 mg/dL (8.6-10.3) 04/26/16 06:30 Magnesium 2.2 mg/dL (1.9-2.7) 04/26/16 06:30 Iron 67 ug/dL (38-169) 04/25/16 08:10 TIBC 177 ug/dL (250-450) L 04/25/16 08:10 Iron Saturation 38 % (15-55) 04/25/16 08:10 Unsaturated IBC 110 ug/dL (111-343) L 04/25/16 08:10 Total Bilirubin 0.5 mg/dL (0.3-1.0) 04/24/16 22:05 AST 11 U/L (13-39) L 04/24/16 22:05 ALT 5 U/L (7-52) L 04/24/16 22:05 Alkaline Phosphatase 67 U/L (34-104) 04/24/16 22:05 Ammonia 77 umol/L (16-53) H 04/26/16 06:30 Troponin I 0.01 ng/mL (0.01-0.05) 04/24/16 22:05 B-Natriuretic Peptide 191.0 pg/mL (5.0-100.0) H 04/26/16 06:30 Total Protein 6.0 gm/dL (6.0-8.3) 04/24/16 22:05 Albumin 2.7 gm/dL (4.2-5.5) L 04/24/16 22:05 Globulin 3.3 gm/dL 04/24/16 22:05 Albumin/Globulin Ratio 0.8 (1.0-1.8) L 04/24/16 22:05 Tumor Marker AFP 1.2 ng/mL (0.0-8.3) 04/25/16 08:10 Carcinoembryonic Ag 1.9 ng/mL (0.0-4.7) 04/25/16 08:10 Vitamin B12 393 pg/mL (211-946) 04/26/16 06:30 Folic Acid 10.0 ng/mL (>3.0) 04/26/16 06:30 TSH 2.69 uIU/ml (0.34-5.60) 04/24/16 22:05 Urine Source CLEAN C 04/24/16 22:15 Urine Color YELLOW 04/24/16 22:15 Urine Clarity HAZY (CLEAR) 04/24/16 22:15 Urine pH 7.0 04/24/16 22:15 Ur Specific [place] 1.025 (1.005-1.030) 04/24/16 22:15 Urine Protein NEGATIVE mg/dL (NEGATIVE) 04/24/16 22:15 Urine Glucose (UA) NEGATIVE mg/dL (NEGATIVE) 04/24/16 22:15 Urine Ketones NEGATIVE mg/dL (NEGATIVE) 04/24/16 22:15 Urine Blood NEGATIVE (NEGATIVE) 04/24/16 22:15 Urine Nitrate POSITIVE (NEGATIVE) H 04/24/16 22:15 Urine Bilirubin NEGATIVE (NEGATIVE) 04/24/16 22:15 Urine Urobilinogen >=8.0 E.U./dL (0.2 - 1.0) H 04/24/16 22:15 Ur Leukocyte Esterase NEGATIVE (NEGATIVE) 04/24/16 22:15 Urine RBC 0-2 /hpf (0-5) H 04/24/16 22:15 Urine WBC 2-5 /hpf (0-5) H 04/24/16 22:15 Ur Epithelial Cells OCCASIONAL /lpf (FEW) 04/24/16 22:15 Urine Bacteria MANY /hpf (NONE SEEN) 04/24/16 22:15 RPR NONREACTIVE (NONREACTIVE) 04/24/16 22:05 Blood Type O POSITIVE 04/24/16 22:05 Antibody Screen NEGATIVE 04/24/16 22:05 Crossmatch See Detail 04/24/16 22:05 - Physical Exam Vitals and I&O: Vital Signs Temp 98.6 F 04/27/16 00:00 Pulse 93 04/27/16 00:00 Resp 18 04/27/16 00:00 BP 118/85 04/27/16 00:00 Pulse Ox 96 04/27/16 00:00 Intake & Output 04/26/16 04/27/16 04/27/16 18:59 06:59 18:59 Intake Total 1360 Balance 1360 Intake: Intake, IV Amount 1360 D5-0.45NS 1,000 ml @ 100 1360 mls/hr IV .Q10H [facility] Rx#: [id number] Active Medications: Current Medications Acetaminophen (Tylenol) 650 mg PO Q4HR PRN PRN Reason: Pain or Fever >101 Stop: 06/24/16 00:03 Al Hydrox/Mg Hydrox/Simethicone (Maalox) 30 ml PO Q6HR PRN PRN Reason: Constipation Stop: 06/24/16 00:03 Albuterol Sulfate (Albuterol 2.5mg/3ml Neb Ud) 2.5 mg IH Q2HR PRN PRN Reason: Shortness of Breath or Wheeze Stop: 06/24/16 00:03 Ascorbic Acid (Vitamin C) 500 mg PO DAILY [facility] Stop: 06/24/16 08:59 Last Admin: 04/27/16 09:35 Dose: 500 mg Benztropine Mesylate (Cogentin) 1 mg PO BID [facility] Stop: 06/24/16 08:59 Last Admin: 04/27/16 09:36 Dose: 1 mg Clonazepam (Klonopin) 0.5 mg PO DAILY [facility] PRN Reason: Protocol Stop: 06/24/16 08:59 Last Admin: 04/27/16 09:35 Dose: 0.5 mg Guaifenesin (Robitussin) 200 mg PO Q4HR PRN PRN Reason: Cough or Congestion Stop: 06/24/16 00:03 Haloperidol (Haldol) 2 mg PO BID [facility] PRN Reason: Protocol Stop: 06/25/16 08:59 Last Admin: 04/27/16 09:35 Dose: 2 mg Haloperidol Decanoate (Haldol Dec) 50 mg IM [id number] OLY PRN Reason: Protocol Stop: 06/25/16 09:59 Last Admin: 04/26/16 09:14 Dose: 50 mg Dextrose/Sodium Chloride (D5-0.45ns) 1,000 mls @ 100 mls/hr IV .Q10H [facility] Stop: 06/24/16 00:14 Last Admin: 04/26/16 18:13 Dose: 100 mls/hr Levofloxacin (Levaquin Pb) 500 mg in 100 mls @ 100 mls/hr IV Q24HR [facility] Stop: 06/24/16 20:59 Last Admin: 04/25/16 21:34 Dose: 100 mls/hr Ipratropium [place] (Atrovent Neb 0.5mg/2.5ml) 0.5 mg IH Q2HR PRN PRN Reason: Shortness of Breath or Wheeze Stop: 06/24/16 00:03 Lactobacillus Rhamnosus (Culturelle) 1 each PO DAILY O[facility] Stop: 06/24/16 08:59 Last Admin: 04/27/16 09:35 Dose: 1 each Lactulose (Cephulac) 20 gm PO TID OLY Stop: 06/24/16 08:59 Last Admin: 04/27/16 09:36 Dose: 20 gm Lorazepam (Ativan) 1 mg PO Q4H PRN; Protocol PRN Reason: Anxiety Stop: 06/23/16 23:58 Meclizine HCl (Antivert) 25 mg PO DAILY PRN PRN Reason: Nausea / Vomiting Stop: 06/24/16 00:03 Miscellaneous (Vte Chemical Prophylaxis Screen/ Admission) 1 ea [facility] PRN PRN PRN Reason: PROTOCOL Stop: 06/24/16 17:23 Mupirocin (Bactroban Oint) 1 appl TP BID [facility] Stop: 06/26/16 08:59 Ondansetron HCl (Zofran) 4 mg IV Q8H PRN PRN Reason: Nausea / Vomiting Stop: 06/24/16 00:03 Pantoprazole Sodium (Protonix) 40 mg PO BID [facility] Stop: 06/24/16 08:59 Last Admin: 04/27/16 09:35 Dose: 40 mg Zolpidem Tartrate (Ambien) 10 mg PO HS PRN PRN Reason: Insomnia Stop: 06/24/16 00:03 General: alert Neck: Supple Lungs: CTAB Cardiovascular: RRR, Normal S1, Normal S2, without murmur Abdomen: soft non-tender, non-distended, positive bowel sound Neurological: no change - Procedures Procedures: Procedures Procedure Code Date BLOOD TRANSFUSION SERVICE 81322 09/07/06 INJECT/INFUSE NEC 99.29 07/23/09 NON-INVASIVE MECHANICAL VENTILATION 93.90 12/07/04 OTHER PYLOROPLASTY 44.29 12/07/04 PACKED CELL TRANSFUSION 99.04 07/06/06 PART GASTREC W JEJ ANAST 43.7 05/23/05 POS AIRWAY PRESSURE CPAP 25074 12/07/04 REMOVAL OF STOMACH PARTIAL 17407 05/23/05 TRANSFUSION NEC 99.09 09/07/06 TRUNCAL VAGOTOMY 44.01 12/07/04 VAGOTOMY & PYLORUS REPAIR 96509 12/07/04 Internal Medicine Assmt/Plan - Assessment Assessment: ACUTE UTI SEVERE ANEMIA GERD - Plan Plan: continue ivabx monitor h/h ivf for hydration dc planning
[2016-04-27] MEDS: D5-0.45NS 1,000 ML IV SCH (14:24)
--- NOTE | 2016-04-28 00:58 | Progress Notes ---
Case was discussed with staff of the patient, reviewed records. The patient has been irritable. He refused to eat sometimes. He did get the Haldol Decanoate injection yesterday with no side effects, no sedation, no nausea, and no extrapyramidal symptoms. However, he seemed to be refusing the oral medication. We are working on placement for this patient as well and so far, no side effects, no sedation, no nausea, and no extrapyramidal symptoms. He is still not willing to talk or participate in a meaningful conversation and we will continue to work with the patient in group therapy, milieu therapy, and adjust the medication as needed. JOB# [id number]
[2016-04-28] MEDS: D5-0.45NS 1,000 ML IV SCH (05:19)
[2016-04-28 07:26] LABS: % BASOPHILS 0.5 % (0.0-2.0); % EOSINOPHILS 0.6 % (0.0-5.0); % LYMPHOCYTES 32.7 % (20.0-50.0); % MONOCYTES 6.6 % (2.0-10.0); % NEUTROPHILS 59.6 % (40.0-80.0); HEMATOCRIT 25.5 % (39.0-49.0); HEMOGLOBIN 8.6 gm/dL (13.2-17.3); MEAN CELL VOLUME 85.9 fl (80-99); MEAN CORPUSCULAR HGB CONC 33.8 pg (28.0-36.0); MEAN PLATELET VOLUME 7.1 fl; PLATELET COUNT 447 Th/cmm (150-400); RED BLOOD COUNT 2.96 Mil/cmm (4.30-5.70); RED CELL DISTRIBUTION WIDTH 17.5 % (11.5-20.0); WHITE BLOOD COUNT 8.4 Th/cmm (4.8-10.8)
[2016-04-28 07:37] LABS: ANION GAP 7.3 (7.0-16.0); BUN - UREA NITROGEN 13 mg/dL (7-25); BUN/CREATININE RATIO 21.7; CALCIUM SERUM 8.8 mg/dL (8.6-10.3); CARBON DIOXIDE 24.6 mEq/L (21.0-31.0); CHLORIDE 106 mEq/L (98-107); CREATININE - SERUM 0.6 mg/dL (0.7-1.3); GLUCOSE 113 mg/dL (70-105); POTASSIUM SERUM 3.9 mEq/L (3.5-5.1); SODIUM SERUM 134 mEq/L (136-145)
[2016-04-28] MEDS: Lactulose 10 Gm/15 mL 30mL UDC PO SCH ×3 (09:59→14:23)
[2016-04-28] MEDS: Benztropine 1 MG TAB PO SCH ×2 (10:00→12:41)
[2016-04-28] MEDS: Lactobacillus Rhamnosus 10 Billion CFU Capsule PO SCH ×2 (10:00→12:43)
[2016-04-28] MEDS: Pantoprazole 40 mg EC Tab PO SCH (10:00)
--- NOTE | 2016-04-28 14:25 | Internal Medicine Prog Note ---
Internal Medicine Subjective - Subjective Service Date: 04/28/16 Patient seen and examined:: with staff Patient is:: awake Per staff patient is:: no adverse event Internal Medicine Objective - Results Result Diagrams: 04/28/16 06:33 04/28/16 06:33 Recent Labs: Laboratory Last Values WBC 8.4 Th/cmm (4.8-10.8) 04/28/16 06:33 RBC 2.96 Mil/cmm (4.30-5.70) L 04/28/16 06:33 Hgb 8.6 gm/dL (13.2-17.3) L 04/28/16 06:33 Hct 25.5 % (39.0-49.0) L 04/28/16 06:33 MCV 85.9 fl (80-99) 04/28/16 06:33 MCH 29.0 pg (26.0-30.0) 04/28/16 06:33 MCHC Differential 33.8 pg (28.0-36.0) 04/28/16 06:33 RDW 17.5 % (11.5-20.0) 04/28/16 06:33 Plt Count 447 Th/cmm (150-400) H 04/28/16 06:33 MPV 7.1 fl 04/28/16 06:33 Neutrophils % 59.6 % (40.0-80.0) 04/28/16 06:33 Lymphocytes % 32.7 % (20.0-50.0) 04/28/16 06:33 Monocytes % 6.6 % (2.0-10.0) 04/28/16 06:33 Eosinophils % 0.6 % (0.0-5.0) 04/28/16 06:33 Basophils % 0.5 % (0.0-2.0) 04/28/16 06:33 PT 10.6 SECONDS (9.5-11.5) 04/24/16 22:05 INR 1.07 (0.5-1.4) 04/24/16 22:05 PTT (Actin FS) 32.1 SECONDS (26.0-38.0) 04/24/16 22:05 Sodium 134 mEq/L (136-145) L 04/28/16 06:33 Potassium 3.9 mEq/L (3.5-5.1) 04/28/16 06:33 Chloride 106 mEq/L (98-107) 04/28/16 06:33 Carbon Dioxide 24.6 mEq/L (21.0-31.0) 04/28/16 06:33 Anion Gap 7.3 (7.0-16.0) 04/28/16 06:33 BUN 13 mg/dL (7-25) 04/28/16 06:33 Creatinine 0.6 mg/dL (0.7-1.3) L 04/28/16 06:33 Est GFR ( Amer) > 60.0 ml/min 04/28/16 06:33 Est GFR (Non-Af Amer) > 60.0 ml/min 04/28/16 06:33 BUN/Creatinine Ratio 21.7 04/28/16 06:33 Glucose 113 mg/dL (70-105) H 04/28/16 06:33 Calcium 8.8 mg/dL (8.6-10.3) 04/28/16 06:33 Magnesium 2.2 mg/dL (1.9-2.7) 04/26/16 06:30 Iron 67 ug/dL (38-169) 04/25/16 08:10 TIBC 177 ug/dL (250-450) L 04/25/16 08:10 Iron Saturation 38 % (15-55) 04/25/16 08:10 Unsaturated IBC 110 ug/dL (111-343) L 04/25/16 08:10 Total Bilirubin 0.5 mg/dL (0.3-1.0) 04/24/16 22:05 AST 11 U/L (13-39) L 04/24/16 22:05 ALT 5 U/L (7-52) L 04/24/16 22:05 Alkaline Phosphatase 67 U/L (34-104) 04/24/16 22:05 Ammonia 77 umol/L (16-53) H 04/26/16 06:30 Troponin I 0.01 ng/mL (0.01-0.05) 04/24/16 22:05 B-Natriuretic Peptide 191.0 pg/mL (5.0-100.0) H 04/26/16 06:30 Total Protein 6.0 gm/dL (6.0-8.3) 04/24/16 22:05 Albumin 2.7 gm/dL (4.2-5.5) L 04/24/16 22:05 Globulin 3.3 gm/dL 04/24/16 22:05 Albumin/Globulin Ratio 0.8 (1.0-1.8) L 04/24/16 22:05 Tumor Marker AFP 1.2 ng/mL (0.0-8.3) 04/25/16 08:10 Carcinoembryonic Ag 1.9 ng/mL (0.0-4.7) 04/25/16 08:10 Vitamin B12 393 pg/mL (211-946) 04/26/16 06:30 Folic Acid 10.0 ng/mL (>3.0) 04/26/16 06:30 TSH 2.69 uIU/ml (0.34-5.60) 04/24/16 22:05 Urine Source CLEAN C 04/24/16 22:15 Urine Color YELLOW 04/24/16 22:15 Urine Clarity HAZY (CLEAR) 04/24/16 22:15 Urine pH 7.0 04/24/16 22:15 Ur Specific [place] 1.025 (1.005-1.030) 04/24/16 22:15 Urine Protein NEGATIVE mg/dL (NEGATIVE) 04/24/16 22:15 Urine Glucose (UA) NEGATIVE mg/dL (NEGATIVE) 04/24/16 22:15 Urine Ketones NEGATIVE mg/dL (NEGATIVE) 04/24/16 22:15 Urine Blood NEGATIVE (NEGATIVE) 04/24/16 22:15 Urine Nitrate POSITIVE (NEGATIVE) H 04/24/16 22:15 Urine Bilirubin NEGATIVE (NEGATIVE) 04/24/16 22:15 Urine Urobilinogen >=8.0 E.U./dL (0.2 - 1.0) H 04/24/16 22:15 Ur Leukocyte Esterase NEGATIVE (NEGATIVE) 04/24/16 22:15 Urine RBC 0-2 /hpf (0-5) H 04/24/16 22:15 Urine WBC 2-5 /hpf (0-5) H 04/24/16 22:15 Ur Epithelial Cells OCCASIONAL /lpf (FEW) 04/24/16 22:15 Urine Bacteria MANY /hpf (NONE SEEN) 04/24/16 22:15 RPR NONREACTIVE (NONREACTIVE) 04/24/16 22:05 Blood Type O POSITIVE 04/24/16 22:05 Antibody Screen NEGATIVE 04/24/16 22:05 Crossmatch See Detail 04/24/16 22:05 - Physical Exam Vitals and I&O: Vital Signs Temp 97.2 F 04/28/16 00:00 Pulse 79 04/28/16 07:14 Resp 18 04/28/16 08:00 BP 96/64 04/28/16 00:00 Pulse Ox 95 04/28/16 07:14 Intake & Output 04/27/16 04/28/16 04/28/16 18:59 06:59 18:59 Intake Total 1250 1120 Balance 1250 1120 Intake: Intake, IV Amount 1000 D5-0.45NS 1,000 ml @ 100 1000 mls/hr IV .Q10H OLY Rx#: [id number] Oral 1250 120 Other: # Voids 4 3 # Bowel Movements 1 1 Stool Characteristics Soft Soft Formed Formed Active Medications: Current Medications Acetaminophen (Tylenol) 650 mg PO Q4HR PRN PRN Reason: Pain or Fever >101 Stop: 06/24/16 00:03 Al Hydrox/Mg Hydrox/Simethicone (Maalox) 30 ml PO Q6HR PRN PRN Reason: Constipation Stop: 06/24/16 00:03 Albuterol Sulfate (Albuterol 2.5mg/3ml Neb Ud) 2.5 mg IH Q2HR PRN PRN Reason: Shortness of Breath or Wheeze Stop: 06/24/16 00:03 Ascorbic Acid (Vitamin C) 500 mg PO DAILY [facility] Stop: 06/24/16 08:59 Last Admin: 04/28/16 12:41 Dose: 500 mg Benztropine Mesylate (Cogentin) 1 mg PO BID [facility] Stop: 06/24/16 08:59 Last Admin: 04/28/16 12:41 Dose: 1 mg Clonazepam (Klonopin) 0.5 mg PO DAILY [facility] PRN Reason: Protocol Stop: 06/24/16 08:59 Last Admin: 04/28/16 12:41 Dose: 0.5 mg Guaifenesin (Robitussin) 200 mg PO Q4HR PRN PRN Reason: Cough or Congestion Stop: 06/24/16 00:03 Haloperidol (Haldol) 2 mg PO BID [facility] PRN Reason: Protocol Stop: 06/25/16 08:59 Last Admin: 04/28/16 12:40 Dose: 2 mg Haloperidol Decanoate (Haldol Dec) 50 mg IM [id number] OLY PRN Reason: Protocol Stop: 06/25/16 09:59 Last Admin: 04/26/16 09:14 Dose: 50 mg Dextrose/Sodium Chloride (D5-0.45ns) 1,000 mls @ 100 mls/hr IV .Q10H OLY Stop: 06/24/16 00:14 Last Admin: 04/28/16 05:19 Dose: 100 mls/hr Levofloxacin (Levaquin Pb) 500 mg in 100 mls @ 100 mls/hr IV Q24HR [facility] Stop: 06/24/16 20:59 Last Admin: 04/25/16 21:34 Dose: 100 mls/hr Ipratropium [place] (Atrovent Neb 0.5mg/2.5ml) 0.5 mg IH Q2HR PRN PRN Reason: Shortness of Breath or Wheeze Stop: 06/24/16 00:03 Lactobacillus Rhamnosus (Culturelle) 1 each PO DAILY [facility] Stop: 06/24/16 08:59 Last Admin: 04/28/16 12:43 Dose: 1 each Lactulose (Cephulac) 20 gm PO TID [facility] Stop: 06/24/16 08:59 Last Admin: 04/28/16 14:23 Dose: Not Given Lorazepam (Ativan) 1 mg PO Q4H PRN; Protocol PRN Reason: Anxiety Stop: 06/23/16 23:58 Meclizine HCl (Antivert) 25 mg PO DAILY PRN PRN Reason: Nausea / Vomiting Stop: 06/24/16 00:03 Miscellaneous (Vte Chemical Prophylaxis Screen/ Admission) 1 ea [facility] PRN PRN PRN Reason: PROTOCOL Stop: 06/24/16 17:23 Mupirocin (Bactroban Oint) 1 appl TP BID [facility] Stop: 06/26/16 08:59 Last Admin: 04/28/16 09:58 Dose: 1 appl Ondansetron HCl (Zofran) 4 mg IV Q8H PRN PRN Reason: Nausea / Vomiting Stop: 06/24/16 00:03 Pantoprazole Sodium (Protonix) 40 mg PO BID [facility] Stop: 06/24/16 08:59 Last Admin: 04/28/16 10:00 Dose: Not Given Zolpidem Tartrate (Ambien) 10 mg PO HS PRN PRN Reason: Insomnia Stop: 06/24/16 00:03 General: alert HEENT: NC/AT, PERRLA Neck: Supple Lungs: CTAB Cardiovascular: RRR, Normal S1, Normal S2, without murmur Abdomen: soft non-tender Neurological: no change - Procedures Procedures: Procedures Procedure Code Date BLOOD TRANSFUSION SERVICE 82485 09/07/06 INJECT/INFUSE NEC 99.29 07/23/09 NON-INVASIVE MECHANICAL VENTILATION 93.90 12/07/04 OTHER PYLOROPLASTY 44.29 12/07/04 PACKED CELL TRANSFUSION 99.04 07/06/06 PART GASTREC W JEJ ANAST 43.7 05/23/05 POS AIRWAY PRESSURE CPAP 58000 12/07/04 REMOVAL OF STOMACH PARTIAL 23731 05/23/05 TRANSFUSION NEC 99.09 09/07/06 TRUNCAL VAGOTOMY 44.01 12/07/04 VAGOTOMY & PYLORUS REPAIR 49266 12/07/04 Internal Medicine Assmt/Plan - Assessment Assessment: ACUTE UTI SEVERE ANEMIA GERD - Plan Plan: continue ivabx ivf for hydration dc planning
--- NOTE | 2016-04-29 08:08 | Progress Notes ---
Case discussed with staff of the patient, reviewed records. The patient as reported by staff at times refusing care. He gets sometimes irritable if he is approached with care; however, apparently, I was told that they have a intermediate he is going to and he is on Haldol Decanoate, which may like he is getting his antipsychotic medication and he could follow up with the psychiatrist at the intermediate and so far, no side effects, no sedation, no nausea, no extrapyramidal symptoms. Thank you very much for allowing me to participate in the care of this most interesting gentleman. JOB# [id number]
--- NOTE | 2016-06-01 01:02 | Discharge Summary ---
FINAL DIAGNOSES: 1. Severe anemia. 2. Agitation. 3. Urinary tract infection. HISTORY OF PRESENT ILLNESS: A 61-year-old male, resident of [place], who was sent to [facility] for UTI and agitation. PHYSICAL EXAMINATION: GENERAL: The patient is well developed, well nourished, in no acute distress. VITAL SIGNS: Stable. HEAD: Normocephalic, atraumatic. NECK: Supple. No mass. LUNGS: Clear. HEART: Regular rate and rhythm. ABDOMEN: Soft, nontender and nondistended. HOSPITAL COURSE: During the hospital stay, the patient was admitted to Med/Surg Unit. The patient had a 1:[address] Jordan and Dr. Hernandez were on the case as well. The patient had a CT of the abdomen and pelvis and the impression is approximately 2.3 cm round intraluminal balloon-like density within the stomach, findings consistent with prior cholecystectomy. The patient was kept on IV antibiotics and IV fluids for hydration as well. The patient later then stabilized and was stable for discharge. CONDITION UPON DISCHARGE: Fair. DISPOSITION: The patient is going to [place]. JOB# [id number]
== END 2016-04-28 19:30 | DRG 811 ==
LOC: ER 18:42 → MSI 23:25
PROVIDERS: ADMIT Internal Medicine; ATTEND Internal Medicine
DX: D64.9 Anemia, unspecified (principal); E43 Unspecified severe protein-calorie malnutrition; F03.90 Unspecified dementia, unspecified severity, without behavioral disturbance, psychotic disturbance, mood disturbance, and anxiety; N39.0 Urinary tract infection, site not specified; Z68.1 Body mass index [BMI] 19.9 or less, adult; K21.9 Gastro-esophageal reflux disease without esophagitis; G40.909 Epilepsy, unspecified, not intractable, without status epilepticus; F17.210 Nicotine dependence, cigarettes, uncomplicated; F29 Unspecified psychosis not due to a substance or known physiological condition; F20.9 Schizophrenia, unspecified; F31.9 Bipolar disorder, unspecified; Z98.890 Other specified postprocedural states; Z88.0 Allergy status to penicillin
CPT/HCPCS: 36415-UA; 80048-TC; 80053-TC; 81001-TC; 82105-90; 82140-TC; 82378-90; 82607-90; 82746-90; 83540-90; 83550-90; 83735-TC; 83880-TC; 84443-TC; 84484-TC; 85025-TC; 85610-TC; 85730-TC; 86592-TC; 86850-TC; 86900-TC; 86901-TC; 86922-TC; 94760; J1630; J1631; J1956; J2060; Z7610